=== PATIENT | male | born 1990 | race African-American/Black ===

== ENCOUNTER 2017-12-23 10:52 | Emergency (ER) | payer OTHER ==
[~2017-12-23] VITALS: Ht 177.8 cm; Wt 100.2 kg
--- NOTE | ~2017-12-23 | EKG ---
[place] [address] [employer] [facility] [place] [address] ELECTROCARDIOGRAM REPORT Name: TONYA WILEY JR Room #: REG CHARLES Anglin#: [id number] Admission: 12/23/17 Attend Phys: Discharge: Date of : [birth year] Report #: [id number] THIS REPORT FOR: //name// [facility] ED Test Date: 2017-12-23 Test Time: 11:20:19 Pat Name: TONYA WILEY Department: Room: Gender: Long[place] Foreman: [id number] : 1990 Requested By: Doris Stewart Order Number: [id number] MD: Wm Haines Measurements Intervals [place] Rate: 75 P: 13 IN: 154 QRS: 6 QRSD: 99 T: 11 QT: 382 QTc: 427 Interpretive Statements Sinus rhythm ST elev, probable normal early repol pattern No previous ECG available for comparison Electronically Signed On 12-23-2017 13:04:34 CDT by Wm Haines [email or web address] <ELECTRONICALLY SIGNED> By: Wm Haines MD 12/23/17 1304 1120 1120 Wm Haines MD /ELYSSA
[2017-12-23 12:19] LABS: ABSOLUTE NEUTROPHILS 3.8 thou/uL (1.4-8.2); BASOPHILS 1.1 % (0.0-2.0); EOSINOPHILS 1.4 % (0.0-3.0); HEMATOCRIT 43.3 % (42.0-52.0); HEMOGLOBIN 14.9 gm/dL (14.0-18.0); LYMPHOCYTES 25.9 % (24.0-44.0); MCH 29.1 pg (26.0-34.0); MCHC 34.4 g/dL (28.0-37.0); MCV 84.7 fL (80.0-100.0); MONOCYTES 8.2 % (1.0-8.0); PLATELET COUNT 316 thou/uL (150-400); POLYS 63.4 % (36.0-66.0); RBC 5.11 mil/uL (4.50-6.00); RDW 13.5 % (10.5-14.5)
[2017-12-23 12:27] LABS: ANION GAP 6 mmol/L (7-16); BUN 11 mg/dL (7-18); CALCIUM 9.9 mg/dL (8.5-10.1); CHLORIDE 103 mmol/L (98-107); CO2 30 mmol/L (21-32); CREATININE 1.1 mg/dL (0.7-1.3); GLUCOSE 93 mg/dL (74-106); POTASSIUM 4.2 mmol/L (3.5-5.1); SODIUM 139 mmol/L (136-145)
[2017-12-23 12:35] LABS: TROPONIN-I <0.06 ng/mL (<0.06)
[2017-12-23 13:31] VITALS: BP 118/69
== END 2017-12-23 13:31 | disposition home or self-care (01) ==
LOC: ER 10:52
PROVIDERS: Physician Assistant
DX: R07.89 Other chest pain (principal)